=== PATIENT | male | born 1965 | race Caucasian/White ===

== ENCOUNTER → 2018-03-27 09:12 | Outpatient (CLI) | payer SELFPAY ==
--- NOTE | 2018-03-27 | DI.RAD.S_ITS ---
PROCEDURE: XR CHEST 2V INDICATIONS: WORK PHYSICAL TECHNIQUE: 2 views of the chest were acquired. COMPARISON: None. FINDINGS: Surgical changes and devices: None. Lungs and pleura: No pleural effusions or pneumothorax. Lungs are clear. Midline lucency present with air-fluid level likely related to hiatal hernia. Mediastinum: Mediastinal contours are normal. Heart size is normal. Bones and chest wall: No suspicious bony abnormalities. Soft tissues appear unremarkable. IMPRESSION: 1. Midline lucency with air-fluid level present likely related to a hiatal hernia. If indicated barium esophagram could be performed for confirmation. No acute cardiopulmonary disease present. Dictated by: [facility] Interpreted: Patrick Arriola MD on 03/27/2018 at 9:39 Approved by: Patrick Arriola M.D. on 03/27/2018 at 10:37
== END ==
PROVIDERS: Visit Provider Emergency Medicine
DX: Z02.1 Encounter for pre-employment examination (principal)
CPT/HCPCS: 71046